=== PATIENT | male | born 1965 | race Caucasian/White ===

== ENCOUNTER 2019-05-23 20:15 | Emergency (ER) | payer OTHER ==
[~2019-05-23] VITALS: Ht 185.4 cm; Wt 84.4 kg
[2019-05-23 20:24] VITALS: Ht 185.4 cm; Wt 84.4 kg
[2019-05-24 00:47] VITALS: BP 155/90
== END 2019-05-24 00:47 | disposition home or self-care (01) ==
LOC: ED 20:15
DX: S62.631A Displaced fracture of distal phalanx of left index finger, initial encounter for closed fracture (principal); S62.633A Displaced fracture of distal phalanx of left middle finger, initial encounter for closed fracture; W31.89XA Contact with other specified machinery, initial encounter; Y93.89 Activity, other specified; Y92.89 Other specified places as the place of occurrence of the external cause; Y99.8 Other external cause status
CPT/HCPCS: 90715; J0690; J2001; J2270

== ENCOUNTER 2019-05-25 15:25 | Emergency (ER) | payer OTHER ==
[~2019-05-25] VITALS: Ht 185.4 cm; Wt 83.2 kg
[2019-05-25 15:32] VITALS: Ht 185.4 cm; Wt 83.2 kg
[2019-05-25 16:48] VITALS: BP 138/79
== END 2019-05-25 16:48 | disposition home or self-care (01) ==
LOC: ED 15:25
DX: S62.601D Fracture of unspecified phalanx of left index finger, subsequent encounter for fracture with routine healing (principal); S62.603D Fracture of unspecified phalanx of left middle finger, subsequent encounter for fracture with routine healing; S61.211D Laceration without foreign body of left index finger without damage to nail, subsequent encounter; S61.213D Laceration without foreign body of left middle finger without damage to nail, subsequent encounter; W23.0XXD Caught, crushed, jammed, or pinched between moving objects, subsequent encounter

== ENCOUNTER 2019-06-02 13:37 | Emergency (ER) | payer OTHER ==
[~2019-06-02] VITALS: Ht 185.4 cm; Wt 83.9 kg
[2019-06-02 13:59] VITALS: BP 108/67; Ht 185.4 cm; Wt 83.9 kg
== END 2019-06-02 14:51 | disposition home or self-care (01) ==
LOC: ED 13:37
DX: S67.191D Crushing injury of left index finger, subsequent encounter (principal); S67.193D Crushing injury of left middle finger, subsequent encounter; X58.XXXD Exposure to other specified factors, subsequent encounter